=== PATIENT | female | born 1995 | race Caucasian/White ===

== ENCOUNTER 2017-05-27 12:43 | Emergency (ER) | payer SELFPAY ==
--- NOTE | ~2017-05-27 | ER ---
PATIENT'S NAME: JUAN CARLOS BARONE [facility] AGE: 22 Y [address] ROOM: [place] [id number] LOCATION: ED ADMIT DATE: 05/27/2017 ER/Outpatient Report DISCHARGE DATE: 05/27/2017 FAMILY PHYSICIAN: PHYSICIAN, ANTONIO ATTENDING PHYSICIAN: Justa Irizarry TIME OF ARRIVAL: 1251. TIME OF EXAM: 1251. CHIEF COMPLAINT: Cough, syncopal episode. HISTORY OF PRESENT ILLNESS: The patient states she has not felt well for the last year ever since she moved here to [place]. She reports that she is having a cough, states she is coughing up oxygen. Denies coughing up any phlegm. States that she has had decreased appetite and has had weight loss. She states that she was nauseated and vomiting yesterday and passed out. She states when she passed out, she fell asleep, and woke up 5 minutes before she was supposed to go to work. States she has increasing weakness. States she had a normal bowel movement today. Has had an increase in urinary frequency, but no pain with urination. Reports she just does not feel well. Last menstrual period was 2 weeks ago. States it was normal. ALLERGIES: NO KNOWN ALLERGIES. CURRENT MEDICATIONS: Current medications are on her meds and reviewed by me. PAST MEDICAL HISTORY: Schizophrenia, PTSD, manic depression. PAST SURGICAL HISTORY: Negative. SOCIAL HISTORY: She denies use of tobacco, drugs, or alcohol. Denies a desire to harm herself. States she does not have a primary provider, but Willie Stuart prescribes her medicines for her. REVIEW OF SYSTEMS: PATIENT'S NAME: JUAN CARLOS BARONE [facility] AGE: 22 Y [address] ROOM: [place] [address] LOCATION: ED ADMIT DATE: 05/27/2017 ER/Outpatient Report DISCHARGE DATE: 05/27/2017 FAMILY PHYSICIAN: PHYSICIAN, NO ATTENDING PHYSICIAN: Justa Irizarry Negative other than those mentioned in the HPI. PHYSICAL EXAMINATION: VITAL SIGNS: She weighed 84.9 kg. Blood pressure was 137/73, pulse of 84, respirations 20, temperature of 97.4 tympanic, O2 saturation was 99% on room air. GENERAL: She is awake, alert, and oriented x4. SKIN: Addy, warm, and dry. HEENT: TMs are pearly walsh. Nasal is boggy. Oropharynx is clear. NECK: Supple. Negative lymph nodes. RESPIRATIONS: Even and nonlabored. Lung sounds are clear throughout. HEART: Regular rate and rhythm. ABDOMEN: Soft and nondistended. Bowel sounds are present. EXTREMITIES: She moves extremities strongly and equally. No deficit is seen. LABORATORY DATA: Lab work was drawn. CBC is within normal limits. Chem panel is within normal limits. Her glucose was 99. Amylase and lipase are within normal limits. Lactate was 2. Procalcitonin was negative. Hemoglobin A1c was 5.2. Urinalysis was done. This showed 5 ketones, 0 to 2 white blood cells. is negative. Chest x-ray was completed. No acute abnormality is seen. IMPRESSION: 1. Cough due to allergies. 2. Mild dehydration. PLAN: Home, rest. Increase her fluids. Did write a note for work. If her symptoms do not improve, she is to follow up with her primary provider. I [facility]. She verbalized understanding. LILIA HAWK APRN FOR [facility]RE[facility]/marla /[id number] d: 05/27/17 2325 t: 05/29/[id number], OUTPATIENT REPORT
[2017-05-27 13:20] LABS: BASOPHIL % 0.3 %; EOSINOPHIL # 0.1 K/uL (0.0-0.5); EOSINOPHIL % 1.7 %; HEMATOCRIT 40.9 % (33.0-46.0); IMMATURE GRANULOCYTE % 0.3 %; LYMPHOCYTE # 1.7 K/uL (0.8-4.0); LYMPHOCYTE % 24.7 %; MCH 27.8 pg (27.0-34.0); MCHC 31.8 gm/dL (32.0-36.5); MCV 87.6 fl (83.0-98.0); MONOCYTE # 0.4 K/uL (0.0-1.0); MONOCYTE % 5.3 %; MPV 9.7 fl (9.4-12.4); NEUTROPHIL # (ANC) 4.7 K/uL (1.8-7.8); NEUTROPHIL % 67.7 %; NRBC % 0 /100WBC (0-0.00); PLATELET COUNT 275 K/uL (150-450); RBC 4.67 M/uL (3.50-5.00)
[2017-05-27 13:42] LABS: ALBUMIN 3.7 gm/dL (3.5-5.0); ALK PHOS 73 IU/L (33-138); ALT 25 IU/L (12-78); ANION GAP 11.2 (10.0-19.0); AST 19 IU/L (10-40); BLOOD UREA NITROGEN 14 mg/dL (6-24); CALCIUM 9.2 mg/dL (8.5-10.5); CHLORIDE 111 mMol/L (96-110); CO2 24 mMol/L (22-32); CREATININE 0.8 mg/dL (0.5-1.1); POTASSIUM 4.2 mMol/L (3.7-5.1); SODIUM 142 mMol/L (135-145); TOTAL PROTEIN 7.5 g/dL (6.0-8.4)
[2017-05-27 13:59] LABS: BILIRUBIN URINE NEGATIVE (NEGATIVE); BLOOD URINE NEGATIVE /UL (NEGATIVE); COLOR URINE STRAW (YELLOW); GLUCOSE URINE NEGATIVE (NEGATIVE); KETONE URINE 5 mg/dL (NEGATIVE); LEUKOCYTES URINE 25 /UL (NEGATIVE); NITRITE URINE NEGATIVE (NEGATIVE); PROTEIN URINE 15 mg/dL (NEGATIVE); UROBILINOGEN URINE NORMAL (NORMAL)
[2017-05-27 14:03] LABS: TURBIDITY URINE 1+ (CLEAR)
[2017-05-27 14:09] LABS: AMORPHOUS URINE 1+ (NEGATIVE); BACTERIA URINE FEW (NEGATIVE); CRYSTALS URINE CALCIUM OXALATE (NEGATIVE); MUCUS URINE 2+ (NEGATIVE); RBC URINE NEGATIVE #/HPF (NEGATIVE); WBC URINE 0-2 #/HPF (NEGATIVE)
== END 2017-05-27 14:26 | disposition disaster alternative care site (69) ==
LOC: GMED 12:43
PROVIDERS: Nurse Practitioner Family
DX: R05 Cough (principal); E86.0 Dehydration; F32.9 Major depressive disorder, single episode, unspecified; F43.10 Post-traumatic stress disorder, unspecified; F20.9 Schizophrenia, unspecified; Z79.899 Other long term (current) drug therapy